=== PATIENT | male | born 1950 | race Caucasian/White ===

== ENCOUNTER 2019-07-28 05:39 | Inpatient (IN) | payer MEDICARE ==
[~2019-07-28] VITALS: Ht 170.2 cm; Wt 110.3 kg
[2019-07-28] VITALS (8 sets, daily range): BP systolic 101–170; BP diastolic 55–85
[2019-07-28] MEDS ORDERED: BUDE0.5A IH (10:20)
[2019-07-28] MEDS ORDERED: PRAZ2CAP2 PO (10:20)
[2019-07-28] MEDS ORDERED: XOPENEX0.63 MG/3 IH (10:20)
[2019-07-28] MEDS ORDERED: FLUO40CA2 PO (10:20)
[2019-07-28] MEDS ORDERED: MONT10TA49 PO (10:20)
[2019-07-28] MEDS ORDERED: ACET325T9 PO (10:20)
[2019-07-28] MEDS ORDERED: SPIR25TA5 PO (10:20)
[2019-07-28] MEDS ORDERED: GLIP10TA13 PO (10:20)
[2019-07-28] MEDS ORDERED: PRAZ5CAP2 PO (10:20)
[2019-07-28] MEDS ORDERED: AMMO57LO TP (10:20)
[2019-07-28] MEDS ORDERED: TIOT18CA IH (10:20)
[2019-07-28] MEDS ORDERED: ERGO500027 PO (10:20)
[2019-07-28] MEDS ORDERED: ASPI-630 PO (10:20)
[2019-07-28] MEDS ORDERED: RANI150T2 PO (10:20)
[2019-07-28] MEDS ORDERED: CRESTOR40 MG PO (10:20)
[2019-07-28] MEDS ORDERED: QUET400T PO (10:20)
[2019-07-28] MEDS ORDERED: FURO40TA4 PO (10:20)
[2019-07-28] MEDS ORDERED: GABA600T7 PO (10:20)
[2019-07-28] MEDS ORDERED: ALOG25TA2 PO (10:20)
[2019-07-28] MEDS ORDERED: EMPA10TA PO (10:20)
[2019-07-28] MEDS ORDERED: CYAN100031 PO (10:20)
[2019-07-28] MEDS: ASPIRIN CHEWABLE 81 MG TABLET. PO SCH (11:26)
[2019-07-28] MEDS ORDERED: ACETAMINOPHEN 325 MG TABLET. PO PRN (11:30)
[2019-07-28] MEDS ORDERED: AMMONIUM LACTATE 12% TOPICAL LOTION 226GM BOTTLE. TP PRN (11:30)
[2019-07-28] MEDS: IPRATRPIUM/ALBUTEROL 0.5/2.5MG 3 ML NEBU. NEB SCH ×3 (12:00→20:03)
[2019-07-28] MEDS: BUDESONIDE 0.5 MG/2 ML NEBU. NEB SCH ×2 (12:00→20:03)
[2019-07-28] MEDS ORDERED: AMMONIUM LACTATE 12% TOPICAL LOTION 226GM BOTTLE. TP SCH (12:00)
[2019-07-28] MEDS ORDERED: ACETAMINOPHEN 325 MG TABLET. PO SCH (12:00)
[2019-07-28] MEDS ORDERED: FUROSEMIDE 40 MG TABLET. PO PRN (12:00)
[2019-07-28] MEDS: FLUoxetine HCL 20 MG CAPSULE PO SCH (12:16)
[2019-07-28] MEDS: CYANOCOBALAMIN (VITAMIN B-12) 1,000 MCG TABLET. PO SCH (12:16)
[2019-07-28] MEDS: FAMOTIDINE 20 MG TABLET. PO SCH (12:16)
[2019-07-28] MEDS: MONTELUKAST SODIUM 10 MG TABLET. PO SCH (12:16)
[2019-07-28] MEDS: SPIRONOLACTONE 25 MG TABLET PO SCH (12:17)
--- NOTE | 2019-07-28 12:20 | HP ---
ADMIT DATE: 07/28/2019 HISTORY OF PRESENT ILLNESS: The patient is a 69-year-old male patient, who was actually discharged from [facility] on 07/26/2019. He was actually admitted there with syncopal episode and on the day of discharge, I actually discontinued his lisinopril and bisoprolol. He was also on about 60 mg of Lasix; I cut down to only 40 mg. In fact, when he came, he was extremely dehydrated and has acute kidney injury. On admission, his creatinine was 2.6; on the day of discharge, it was 1.1. He did have also COPD exacerbation and was treated with steroids and he did actually extremely well and was discharged home and apparently presented again to the Emergency Room of [facility] with another episode of syncope. He stated he was watching Murder Mystery on TV and he got up to go to the bed, got dizzy and kind of blacked out. "I fell hitting my head again in the same place." He was taken to the [facility] and they refused to take him there and from there, he was transferred to [facility] where he was evaluated. Apparently, the paramedics found his blood pressure to be low, with 70 mm systolic pressure. He did complain of head injury in the same location; has prior head injury on 07/22. Has had contusion and hematoma on the right scalp. The patient stated he had marked dizziness where he reports syncopal episode. He normally follows at the [facility] and was referred to [facility]. The patient has severe COPD, on 3 liters of oxygen. He does have a history of coronary artery disease and bypass graft before. He was evaluated in the Emergency Room. His lab work showed that his troponin was high at 0.612. White cell count was slightly elevated, but he is also on steroids. His chemistry showed his creatinine actually is 1.5, slightly higher the day he was discharged and his D-dimer was 0.94, although we did actually CT angio, which showed no evidence of pulmonary embolism. Has had CT scan of the maxillofacial and cervical spine and a CT scan of the head showed that there is no acute finding. There is no loss of vertebral body stature. There is no prevertebral soft tissue swelling. The vertebral bodies are well aligned. C1-C2 relationship is normal. The visualized osseous structures appear normal. The nasal septum is mostly midline. The ostiomeatal complexes are narrow, but patent. The paranasal sinuses are clear. The visualized osseous structures appear intact. The orbits appear normal. The mandible is not well seen due to an emotion and given the recurrence, he has a chest x-ray, which basically showed that his right basal infiltrate could be discoid atelectasis, pulmonary contusion, possible mild fluid overload, right jugular vein well positioned, no pneumothorax. Given the recurrence of syncope and elevated troponin, the patient was transferred to [facility] for further evaluation and to consult the Cardiology team. PAST MEDICAL HISTORY: Significant for coronary artery disease, status post coronary artery bypass graft surgery, he has COPD, history of stroke few years ago without significant residual, gastroesophageal reflux disease, hypertension, hyperlipidemia, hypothyroidism, chronic renal disease, and myocardial infarction. He also has type 2 diabetes mellitus with history of ischemic cardiomyopathy and congestive heart failure. He is also known to have schizophrenia, anxiety, and depression. PAST SURGICAL HISTORY: Significant for coronary artery bypass graft surgery and on his last admission, he actually fell and also broke his right medial malleolus, for which he has a walking boot. FAMILY HISTORY: Noncontributory. SOCIAL HISTORY: He is single. He smokes 3-4 cigarettes a day. He denies alcohol drinking or illicit drug use. He is a . ALLERGIES: HE IS ALLERGIC TO PENICILLIN, RABEPRAZOLE AND DIAZEPAM. REVIEW OF SYSTEMS: As per history of present illness. MEDICATIONS: He was discharged on following medications: He was discharged on Tylenol 650 mg every 4 hours, albuterol sulfate 2 puffs every 4-6 hours, alogliptin 25 mg daily, ammonium lactate apply topically twice a day, aspirin 81 mg once a day, Pulmicort 2 puffs twice a day, carboxymethylcellulose for Refresh Optive eyedrops 1 drop to both eyes 4 times a day. He was on cyanocobalamin for vitamin B12 of 1000 mcg tablet once a day, diclofenac sodium 1 gram applied topically 3 times a day, Jardiance 12.5 mg daily, ergocalciferol 50,000 International Unit once a week, fluoxetine 40 mg once a day, fluticasone propionate 2 sprays to each nostril once a day, furosemide 40 mg once a day, gabapentin 300 mg 3 times a day, glipizide 20 mg twice a day, Xopenex inhalation 4 times a day, montelukast for Singulair 10 mg at bedtime. He is on nicotine lozenges 2 mg every 2 hours as needed, nitroglycerin 0.4 mg sublingually every 5 minutes x 3, prazosin 7 mg at bedtime, quetiapine fumarate for Seroquel 400 mg at bedtime, ranitidine 150 mg twice a day, Crestor 40 mg once a day, saliva stimulant 1 mL every hour as needed, sodium chloride by saline spray 2 sprays to each nostril as needed, spironolactone 12.5 mg daily and Spiriva HandiHaler 1 inhalation once a day. In fact, on his last discharge, I discontinued his bisoprolol, furosemide, lisinopril, and meloxicam. PHYSICAL EXAMINATION: GENERAL: On arrival to the Emergency Room, he looked well and was slightly pale, but no jaundice or cyanosis. No lymphadenopathy. No thyromegaly. No jugular venous distention. No lower limb edema. VITAL SIGNS: His heart rate was 79, blood pressure was 107/74, temperature was 98.2, respiratory rate 21, and oxygen saturation was 99% on 3 liters by nasal cannula. HEAD, EYES, EARS, NOSE AND THROAT: Normocephalic with contusion and hematoma, right scalp and face. Bilateral external ears normal. Oropharynx moist. No oral exudate and the nose was normal. The external ocular movements were intact. NECK: Supple, with no lymphadenopathy or thyromegaly. No jugular venous distension. No audible bruits. HEART: Showed normal first and second heart sounds with no gallop or murmur. CHEST: Clear to auscultation. No crepitation. He has bilateral scattered wheezing. No crackles. ABDOMEN: Soft, nontender. NEUROLOGIC: He was awake, alert, oriented x 3. Moves all extremities on request. He has slight decreased plantar sensory. No new focal deficit. He has lab work done, showed that his white cell count was slightly elevated at 11,600. However, he was on a tapering course of steroids. His hemoglobin was 11, hematocrit 34, MCV 92, and platelet count of 186,000. His chemistry showed a serum sodium 141, potassium 4, chloride 101, bicarbonate 28, anion gap of 12, BUN 30, creatinine 1.5, estimated GFR was 46 mL per minute. His glucose was high at 231. Lactic acid was slightly high at 2.4. Calcium was 8.5. Magnesium 2. Total bilirubin, AST, ALT, alkaline phosphatase were normal. His first troponin was 0.612. His beta natriuretic peptide was 16,167. Total protein was 5.9, albumin was 3. Lipase was 67. TSH was slightly elevated at 5.614. His prothrombin time is 10.4, INR of 1, aPTT was normal at 24. D-dimer slightly elevated at 0.94. Therefore, the patient was transferred to [facility] with syncopal episode and elevated troponin. This is the second time he was admitted for similar presentation. Last time he was extremely dehydrated, his creatinine was 2.4. I did discontinue his lisinopril and bisoprolol last time and did actually CT angio of the chest, showed no evidence of pulmonary emboli. PLAN: To continue, resume all his medication and consult the Cardiology team. Check his orthostatics. ZINA DONIS MD DR: JOSEFINA/harmony JOB#: [id number] / [id number]
[2019-07-28] MEDS ORDERED: LEVALBUTEROL HCL 0.31 MG IH SCH (13:00)
[2019-07-28] MEDS: GABAPENTIN 300 MG CAPSULE. PO SCH ×2 (13:35→21:14)
--- NOTE | 2019-07-28 14:41 | CONS ---
DATE OF CONSULTATION: PULMONARY CONSULTATION HISTORY OF PRESENT ILLNESS: The patient is a 69-year-old male that we are asked to consult on for respiratory failure. The patient denies any childhood respiratory problems. He has been smoking tobacco since the age of 12. Over most of the years that he smoked, he typically consumed approximately 1 pack of cigarettes per day. Presently, he is consuming 3-4 cigarettes per day. He has been diagnosed as having COPD for many years, per his history. He has been on chronic oxygen therapy for the past 3-4 years. He is on 3 L chronically. He believes that his last hospitalization for pulmonary problems was approximately 3 years ago. At baseline, he can walk approximately 100 yards before having to stop due to shortness of breath. He states that chronically he was on Symbicort and p.r.n. levalbuterol. Per the notes of a recent discharge, he was on Pulmicort and albuterol. The patient was recently hospitalized at [facility] for syncope. Please refer to the history and physical of this episode for a synopsis of that hospitalization. At that hospitalization, Dr. Coleman noted that he was treated for an acute exacerbation of his COPD with bronchodilators and steroids. I do not have access to that record, although I do suspect that he was also treated with antibiotics. At that hospitalization, he had a CT exam that showed severe emphysema. He also had a right upper lobe 8 mm lung nodule. He had a left upper lobe infiltrate. He was primarily hospitalized for syncope. He was discharged on 07/26. He subsequently had further syncope and hypotension. He was once again admitted to [facility] and transferred to [facility] primarily for cardiac evaluation. The patient notes that his breathing has been worse for the past month or so. He denies any change in his respiratory status over the past week. He notes that he does have a cough that is occasionally productive of green sputum, but it usually is nonproductive. His cough has not changed. He denies having any fever. PAST MEDICAL HISTORY: Significant for coronary artery disease, status post coronary artery bypass graft surgery. He also had a CVA in the past. He has diabetes and hypertension. He has chronic renal disease. In the past, he has been diagnosed with hypothyroidism. FAMILY HISTORY: He notes that his grandfather of COPD. There is no other family history of lung disease. SOCIAL HISTORY: See above tobacco smoke exposure. He is unemployed, but previously worked as a ball. REVIEW OF SYSTEMS: A 12-point review of systems was obtained. Other than what is noted above, his 12-point review of systems was negative. PHYSICAL EXAMINATION: GENERAL: Reveals a male in no acute distress. VITAL SIGNS: He is afebrile. He is on oxygen at 3 liters by nasal cannula with an oxygen saturation of 97%. His blood pressure presently is 122/85, his heart rate is 91 per minute and regular. His respiratory rate is 20 per minute with pursed lip breathing and a prolonged exhalation phase, but without accessory muscle use. HEENT: Unremarkable. NECK: There is no JVD or lymphadenopathy. CHEST: He has distant breath sounds with occasional scattered wheezing. There are no rales, rhonchi, wheezes or rubs. CARDIOVASCULAR: He has a regular rate and rhythm. The sounds are somewhat distant. I do not appreciate any murmurs or gallops. ABDOMEN: Soft. EXTREMITIES: There is no cyanosis, clubbing or edema. NEUROLOGIC: He is alert, oriented and appropriate. Cranial nerves, motor, and coordination are all intact. LABORATORY DATA: His initial laboratory on this admission at [facility] was significant for white blood cell count of 11,600. His lactic acid was 2.4. His troponin was 0.612. His BNP was 16,000. His creatinine was 2.4. These labs were drawn on admission with his hypotension. I reviewed his chest x-ray that was done at [facility]. There are no acute infiltrates. I also reviewed the CTA that was done at [facility] on 07/25 and the results are as described above including left upper lobe infiltrate, severe emphysema, and a lung nodule. IMPRESSION: 1. Acute on chronic respiratory failure. 2. Chronic obstructive pulmonary disease with acute exacerbation. 3. Left upper lobe pneumonia. 4. Hypotension and syncope. 5. Coronary artery disease. 6. Right upper lobe lung nodule. 7. Tobacco abuse. PLAN: I reviewed all of the above with the patient. I noted to him the extreme importance that he have complete tobacco cessation. I agree with his therapy of bronchodilators, steroids, and low flow oxygen. If he has not received a complete course for pneumonia, I would treat him with appropriate antibiotics for that. His history, however, is very compatible with adequately treated pneumonia. His right upper lobe nodule will require radiographic followup in the future. Thank you for consulting our service. We will follow along with you. If you have any questions, please do not hesitate to contact me. KAMILLE CRUZ MD DR: DONIS/harmony JOB#: [id number] / [id number] GLORIA
[2019-07-28] MEDS: glipiZIDE 5 MG TABLET PO SCH (16:30)
[2019-07-28] MEDS ORDERED: PRAZOSIN HCL 5 MG PO SCH (21:00)
[2019-07-28] MEDS ORDERED: PRAZOSIN 1 MG CAPSULE. PO SCH (21:00)
[2019-07-28] MEDS: QUEtiapine 100 MG TABLET. PO SCH (21:14)
[2019-07-28] MEDS: ATORVASTATIN CALCIUM 40 MG TABLET. PO SCH (21:16)
--- NOTE | 2019-07-28 23:45 | PDOC ---
CARDIOLOGY PROGRESS NOTE SUBJECTIVE: Please see full consult note from [facility] for full details. Patient transferred here for pulmonary eval and recurrent syncope. Today he overall feels ok. Still has dyspnea OBJECTIVE: Vital Signs/I&O: Vital Signs Date Time Temp Pulse Resp B/P (MAP) Pulse Ox O2 Delivery O2 Flow Rate FiO2 07/28/19 21:14 79 170/72 07/28/19 20:04 94 Nasal Cannula 3.0 07/28/19 19:40 97.8 22 97.8 Objective: Bilateral wheezing/rhonchi Normal heart tones No edema soft abd CURRENT MEDICATIONS: Current Medications Medications (Trade) Dose Ordered Sig/Korin Route PRN Reason Start Time Stop Time Status Last Admin Dose Admin Budesonide (Pulmicort) 0.5 mg RTBID NEB 07/28/19 12:00 07/28/19 20:03 Montelukast Sodium (Singulair) 10 mg DAILY PO 07/28/19 12:00 07/28/19 12:16 Spironolactone (Aldactone) 12.5 mg DAILY PO 07/28/19 12:00 07/28/19 12:17 Cyanocobalamin (Vitamin B-12) 1,000 mcg DAILY PO 07/28/19 12:00 07/28/19 12:16 Fluoxetine HCl (PROzac) 40 mg DAILY PO 07/28/19 12:00 07/28/19 12:16 Gabapentin (Neurontin) 300 mg TID PO 07/28/19 14:00 07/28/19 21:14 Glipizide (Glucotrol) 20 mg BIDBFRMEAL PO 07/28/19 16:30 07/28/19 16:30 Prazosin HCl (Minipress) 7 mg QHS PO 07/28/19 21:00 07/28/19 21:14 Quetiapine Fumarate (SEROquel) 400 mg QHS PO 07/28/19 21:00 07/28/19 21:14 Famotidine (Pepcid) 20 mg DAILY PO 07/28/19 12:00 07/28/19 12:16 Atorvastatin Calcium (Lipitor) 80 mg QHS PO 07/28/19 21:00 07/28/19 21:16 Albuterol/ Ipratropium (Duoneb) 3 ml RTQID NEB 07/28/19 12:00 07/28/19 20:03 DIAGNOSTIC TESTING: Tele/EKG/prior [facility] reports reviewed ASSESSMENT: 1. Ischemic CMP 2. Labile BP likely due to autonomic dysfunction 3. ELevated troponin, likely type 2 PLAN: 1. Continue aggressive pulmonary therapy 2. From a purely cardiac perspective, his syncope is not related to any clear rhythm or structural heart abnormalities. Given his cardiomyopathy, cannot rule out arrhythmias. Will consider outpt loop recorder or event monitoring. supportive care. repeat orthostatics in a.m. may need to stop his prazosin. Will follow along. Complex case ANT JENKINS MD Jul 28, 2019 23:45
[2019-07-29 03:40] VITALS: BP 145/74
[2019-07-29 07:00] VITALS: BP 123/69
[2019-07-29] MEDS: BUDESONIDE 0.5 MG/2 ML NEBU. NEB SCH ×2 (07:56→19:37)
[2019-07-29] MEDS: IPRATRPIUM/ALBUTEROL 0.5/2.5MG 3 ML NEBU. NEB SCH ×4 (07:56→19:37)
[2019-07-29] MEDS: FLUoxetine HCL 20 MG CAPSULE PO SCH (08:15)
[2019-07-29] MEDS: glipiZIDE 5 MG TABLET PO SCH ×2 (08:15→15:11)
[2019-07-29] MEDS: FAMOTIDINE 20 MG TABLET. PO SCH (08:15)
[2019-07-29] MEDS: CYANOCOBALAMIN (VITAMIN B-12) 1,000 MCG TABLET. PO SCH (08:15)
[2019-07-29] MEDS: MONTELUKAST SODIUM 10 MG TABLET. PO SCH (08:15)
[2019-07-29] MEDS: ASPIRIN CHEWABLE 81 MG TABLET. PO SCH (08:15)
[2019-07-29 08:16] LABS: BASO % 0 % (0-3); EOS # 0.5 x10^3/uL (0.0-0.7); EOS % 7 % (0-3); HEMATOCRIT 32.6 % (39.0-53.0); HEMOGLOBIN 10.7 g/dL (13.0-17.5); LYMPH # 1.8 x10^3/uL (1.0-4.8); LYMPH % 22 % (24-48); MEAN CORPUSCULAR HEMOGLOBIN 30 pg (25-35); MEAN CORPUSCULAR HGB CONC 33 g/dL (31-37); MEAN CORPUSCULAR VOLUME 92 fL (79-100); MONO # 0.8 x10^3/uL (0.0-1.1); MONO % 11 % (0-9); NEUT # 4.7 x10^3/uL (1.8-7.7); NEUT % 60 % (31-73); PLATELET COUNT 176 x10^3/uL (140-400); RED BLOOD COUNT 3.56 x10^6/uL (4.30-5.70); RED CELL DISTRIBUTION WIDTH 14.7 % (11.5-14.5); WHITE BLOOD COUNT 7.8 x10^3/uL (4.0-11.0)
[2019-07-29] MEDS: GABAPENTIN 300 MG CAPSULE. PO SCH ×3 (08:16→21:56)
[2019-07-29] MEDS: SPIRONOLACTONE 25 MG TABLET PO SCH (08:16)
[2019-07-29] MEDS: EMPAGLIFLOZIN 12.5 MG PO SCH (08:18)
[2019-07-29 08:38] LABS: CALCIUM 8.5 mg/dL (8.5-10.1); CREATININE 0.9 mg/dL (0.7-1.3); GFR 83.9; POTASSIUM 4.5 mmol/L (3.5-5.1)
[2019-07-29] MEDS ORDERED: ALOGLIPTIN BENZOATE 25 MG PO SCH (09:00)
--- NOTE | 2019-07-29 10:24 | PDOC ---
PULMONARY PROGRESS NOTES Subjective He has been smoking tobacco since the age of 12. Over most of the years that he smoked, he typically consumed approximately 1 pack of cigarettes per day. Presently, he is consuming 3-4 cigarettes per day. He has been diagnosed as having COPD for many years, per his history. He has been on chronic oxygen therapy for the past 3-4 years. He is on 3 L chronically. He believes that his last hospitalization for pulmonary problems was approximately 3 years ago. At baseline, he can walk approximately 100 yards before having to stop due to shortness of breath. He states that chronically he was on Symbicort and p.r.n. levalbuterol. Per the notes of a recent discharge, he was on Pulmicort and albuterol. The patient was recently hospitalized at [facility] for syncope. Please refer to the history and physical of this episode for a synopsis of that hospitalization. At that hospitalization, Dr. Coleman noted that he was treated for an acute exacerbation of his COPD with bronchodilators and steroids. I do not have access to that record, although I do suspect that he was also treated with antibiotics. At that hospitalization, he had a CT exam that showed severe emphysema. He also had a right upper lobe 8 mm lung nodule. He had a left upper lobe infiltrate. He was primarily hospitalized for syncope. He was discharged on 07/26. He subsequently had further syncope and hypotension. He was once again admitted to [facility] and transferred to [facility] primarily for cardiac evaluation. The patient noted that his breathing had been worse for the past month or so. He denies any change in his respiratory status over the past week. He notes that he does have a cough that is occasionally productive of green sputum, but it usually is nonproductive. Overnight he has done well and notes his breathing is better and he has been up and out of bed more. Vitals Vital Signs Date Time Temp Pulse Resp B/P (MAP) Pulse Ox O2 Delivery O2 Flow Rate FiO2 07/29/19 08:00 Nasal Cannula 3.0 07/29/19 07:57 98 07/29/19 07:00 97.8 87 22 123/69 (87) 97.8 ROS: No Nausea, No Chest Pain, No Abdominal Pain General: Alert, Oriented X4, No acute distress Lungs: Other (equally diminished breath sounds with a few scattered wheezes) Cardiovascular: S1, S2 Abdomen: Soft, Non-tender Neuro Exam: Alert, Oriented, No Focal Findings Extremities: No Edema Skin: Warm Labs Laboratory Tests Test 07/28/19 11:31 07/29/19 07:55 Troponin I Quantitative 0.308 ng/mL (0.000-0.055) White Blood Count 7.8 x10^3/uL (4.0-11.0) Red Blood Count 3.56 x10^6/uL (4.30-5.70) Hemoglobin 10.7 g/dL (13.0-17.5) Hematocrit 32.6 % (39.0-53.0) Mean Corpuscular Volume 92 fL (79-100) Mean Corpuscular Hemoglobin 30 pg (25-35) Mean Corpuscular Hemoglobin Concent 33 g/dL (31-37) Red Cell Distribution Width 14.7 % (11.5-14.5) Platelet Count 176 x10^3/uL (140-400) Neutrophils (%) (Auto) 60 % (31-73) Lymphocytes (%) (Auto) 22 % (24-48) Monocytes (%) (Auto) 11 % (0-9) Eosinophils (%) (Auto) 7 % (0-3) Basophils (%) (Auto) 0 % (0-3) Neutrophils # (Auto) 4.7 x10^3/uL (1.8-7.7) Lymphocytes # (Auto) 1.8 x10^3/uL (1.0-4.8) Monocytes # (Auto) 0.8 x10^3/uL (0.0-1.1) Eosinophils # (Auto) 0.5 x10^3/uL (0.0-0.7) Basophils # (Auto) 0.0 x10^3/uL (0.0-0.2) Sodium Level 141 mmol/L (136-145) Potassium Level 4.5 mmol/L (3.5-5.1) Chloride Level 105 mmol/L (98-107) Carbon Dioxide Level 33 mmol/L (21-32) Anion Gap 3 (6-14) Blood Urea Nitrogen 22 mg/dL (8-26) Creatinine 0.9 mg/dL (0.7-1.3) Estimated GFR (Cockcroft-Gault) 83.9 Glucose Level 146 mg/dL (70-99) Calcium Level 8.5 mg/dL (8.5-10.1) Laboratory Tests Test 07/28/19 11:31 07/29/19 07:55 Troponin I Quantitative 0.308 ng/mL (0.000-0.055) White Blood Count 7.8 x10^3/uL (4.0-11.0) Red Blood Count 3.56 x10^6/uL (4.30-5.70) Hemoglobin 10.7 g/dL (13.0-17.5) Hematocrit 32.6 % (39.0-53.0) Mean Corpuscular Volume 92 fL (79-100) Mean Corpuscular Hemoglobin 30 pg (25-35) Mean Corpuscular Hemoglobin Concent 33 g/dL (31-37) Red Cell Distribution Width 14.7 % (11.5-14.5) Platelet Count 176 x10^3/uL (140-400) Neutrophils (%) (Auto) 60 % (31-73) Lymphocytes (%) (Auto) 22 % (24-48) Monocytes (%) (Auto) 11 % (0-9) Eosinophils (%) (Auto) 7 % (0-3) Basophils (%) (Auto) 0 % (0-3) Neutrophils # (Auto) 4.7 x10^3/uL (1.8-7.7) Lymphocytes # (Auto) 1.8 x10^3/uL (1.0-4.8) Monocytes # (Auto) 0.8 x10^3/uL (0.0-1.1) Eosinophils # (Auto) 0.5 x10^3/uL (0.0-0.7) Basophils # (Auto) 0.0 x10^3/uL (0.0-0.2) Sodium Level 141 mmol/L (136-145) Potassium Level 4.5 mmol/L (3.5-5.1) Chloride Level 105 mmol/L (98-107) Carbon Dioxide Level 33 mmol/L (21-32) Anion Gap 3 (6-14) Blood Urea Nitrogen 22 mg/dL (8-26) Creatinine 0.9 mg/dL (0.7-1.3) Estimated GFR (Cockcroft-Gault) 83.9 Glucose Level 146 mg/dL (70-99) Calcium Level 8.5 mg/dL (8.5-10.1) Medications Active Scripts Medications Dose Route/Sig Max Daily Dose Days Date Category Spironolactone 25 Mg Tablet 12.5 Mg PO DAILY 07/28/19 Reported Crestor (Rosuvastatin Calcium) 40 Mg Tablet 40 Mg PO HS 07/28/19 Reported Ranitidine Hcl 150 Mg Tablet 150 Mg PO DAILY 07/28/19 Reported Xopenex (Levalbuterol Hcl) 0.63 Mg/3 Ml Vial.neb 0.31 Mg IH QID 07/28/19 Reported Jardiance (Empagliflozin) 10 Mg Tablet 12.5 Mg PO DAILY 07/28/19 Reported B-12 (Cyanocobalamin (Vitamin B-12)) 1,000 Mcg Tablet.er 1,000 Mcg PO DAILY 07/28/19 Reported Spiriva (Tiotropium [place]) 18 Mcg Cap.w.dev 2 Inh IH DAILY 07/28/19 Reported Quetiapine Fumarate 400 Mg Tablet 400 Mg PO HS 07/28/19 Reported Prazosin Hcl 5 Mg Capsule 5 Mg PO HS 07/28/19 Reported Montelukast Sodium Tablet (Montelukast Sodium) 10 Mg Tablet 10 Mg PO DAILY 07/28/19 Reported Glipizide 10 Mg Tablet 20 Mg PO BID 07/28/19 Reported Gabapentin 600 Mg Tablet 300 Mg PO TID 07/28/19 Reported Furosemide 40 Mg Tablet 40 Mg PO DAILY PRN 07/28/19 Reported Fluoxetine Hcl 40 Mg Capsule 40 Mg PO DAILY 07/28/19 Reported Vitamin D2 (Ergocalciferol (Vitamin D2)) 50,000 Unit Capsule 50,000 Unit PO WEEKLY 07/28/19 Reported Budesonide 0.5 Mg/2 Ml Ampul.neb 180 Mcg IH BID 07/28/19 Reported Aspirin 81 Mg Tab.chew 81 Mg PO DAILY 07/28/19 Reported Amlactin (Ammonium Lactate) 57 Gm Lotion 57 Gm TP BID 07/28/19 Reported Alogliptin (Alogliptin Benzoate) 25 Mg Tablet 25 Mg PO DAILY 07/28/19 Reported Tylenol (Acetaminophen) 325 Mg Tablet 325 Mg PO Q4HRS 07/28/19 Reported Impression . 1. Resolving Acute on chronic respiratory failure. 2. Chronic obstructive pulmonary disease with acute exacerbation. 3. Left upper lobe pneumonia. 4. Hypotension and syncope. 5. Coronary artery disease. 6. Right upper lobe lung nodule. 7. Tobacco abuse. PLAN: I reviewed all of the above with the patient. I noted to him again the extreme importance that he have complete tobacco cessation after discharge. I agree with his therapy of bronchodilators, steroids, and low flow oxygen. If he has not received a complete course for pneumonia, I would treat him with appropriate antibiotics for that. His history, however, is very compatible with adequately treated pneumonia. His right upper lobe nodule will require radiographic followup in the future. KAMILLE CRUZ MD Jul 29, 2019 10:24
[2019-07-29 11:21] VITALS: BP 150/73
[2019-07-29] MEDS ORDERED: IPRATRPIUM/ALBUTEROL 0.5/2.5MG 3 ML NEBU. NEB SCH (12:00)
--- NOTE | 2019-07-29 12:24 | PDOC ---
CARDIOLOGY PROGRESS NOTE SUBJECTIVE: No acute events overnight. He does not have any significant problems with ambulation He tells me this morning that when he went home even though he was advised not to take his antihypertensives he ended up taking the same pills from his pillbox and likely suffered from the syncope due to hypotension. Case discussed with nursing and primary care physician OBJECTIVE: Vital Signs/I&O: Vital Signs Date Time Temp Pulse Resp B/P (MAP) Pulse Ox O2 Delivery O2 Flow Rate FiO2 07/29/19 11:40 98 Nasal Cannula 3.0 07/29/19 11:21 97.4 81 20 150/73 (98) 97.4 I & O 07/28/19 07/28/19 07/29/19 14:59 22:59 06:59 Intake Total 240 ml 320 ml Output Total 425 ml 1125 ml 350 ml Balance -185 ml -1125 ml -30 ml Objective: He is alert and oriented in no acute distress Right leg is in a cast He has normal heart tones. Lungs are notable for bilateral wheezing No significant lower ext edema. CURRENT MEDICATIONS: Current Medications Medications (Trade) Dose Ordered Sig/Korin Route PRN Reason Start Time Stop Time Status Last Admin Dose Admin Gabapentin (Neurontin) 300 mg TID PO 07/28/19 14:00 07/29/19 08:16 Glipizide (Glucotrol) 20 mg BIDBFRMEAL PO 07/28/19 16:30 07/29/19 08:15 Prazosin HCl (Minipress) 7 mg QHS PO 07/28/19 21:00 07/29/19 09:20 DC 07/28/19 21:14 Quetiapine Fumarate (SEROquel) 400 mg QHS PO 07/28/19 21:00 07/28/19 21:14 Atorvastatin Calcium (Lipitor) 80 mg QHS PO 07/28/19 21:00 07/28/19 21:16 DIAGNOSTIC TESTING: Labs: Laboratory Tests 07/29/19 07:55 Laboratory Tests Test 07/29/19 07:55 White Blood Count 7.8 x10^3/uL (4.0-11.0) Red Blood Count 3.56 x10^6/uL (4.30-5.70) L Hemoglobin 10.7 g/dL (13.0-17.5) L Hematocrit 32.6 % (39.0-53.0) L Mean Corpuscular Volume 92 fL (79-100) Mean Corpuscular Hemoglobin 30 pg (25-35) Mean Corpuscular Hemoglobin Concent 33 g/dL (31-37) Red Cell Distribution Width 14.7 % (11.5-14.5) H Platelet Count 176 x10^3/uL (140-400) Neutrophils (%) (Auto) 60 % (31-73) Lymphocytes (%) (Auto) 22 % (24-48) L Monocytes (%) (Auto) 11 % (0-9) H Eosinophils (%) (Auto) 7 % (0-3) H Basophils (%) (Auto) 0 % (0-3) Neutrophils # (Auto) 4.7 x10^3/uL (1.8-7.7) Lymphocytes # (Auto) 1.8 x10^3/uL (1.0-4.8) Monocytes # (Auto) 0.8 x10^3/uL (0.0-1.1) Eosinophils # (Auto) 0.5 x10^3/uL (0.0-0.7) Basophils # (Auto) 0.0 x10^3/uL (0.0-0.2) Sodium Level 141 mmol/L (136-145) Potassium Level 4.5 mmol/L (3.5-5.1) Chloride Level 105 mmol/L (98-107) Carbon Dioxide Level 33 mmol/L (21-32) H Anion Gap 3 (6-14) L Blood Urea Nitrogen 22 mg/dL (8-26) Creatinine 0.9 mg/dL (0.7-1.3) Estimated GFR (Cockcroft-Gault) 83.9 Glucose Level 146 mg/dL (70-99) H Calcium Level 8.5 mg/dL (8.5-10.1) ASSESSMENT: 1. Syncope likely due to hypotension from overmedication 2. Ischemic cardio myopathy status post recent heart catheterization through the [facility] 3. Hypertension labile 4. COPD PLAN: 1. He's stable from a cardiac perspective. Discussed with Dr. Babb. Okay for discharge tomorrow. I advised the patient again to change his pills from his pill bottle and update his medication list. ANT JENKINS MD Jul 29, 2019 12:24
[2019-07-29 12:43] LABS: % BANDS 1 % (0-9); % EOS 9 % (0-5); % LYMPHS 25 % (24-48); % MONOS 8 % (0-10); % MYELOS 5 % (0-0); % SEGS 52 % (35-66)
[2019-07-29 12:44] LABS: ANISOCYTOSIS SLIGHT; PLT ESTIMATE ADEQUATE (ADEQUATE)
--- NOTE | 2019-07-29 13:08 | PN ---
DATE: 07/29/2019 SUBJECTIVE: The patient is resting slightly propped up in bed, no apparent distress. On questioning him, he denied any complaint; in particular, has had no further episode of syncope and his chest tightness and wheezing have much improved; denied any shortness of breath and had generally uneventful night. OBJECTIVE: GENERAL: When I examined him this morning, he looked somewhat pale, but no jaundice, cyanosis, or thyromegaly. No jugular venous distension. No lower limb edema. VITAL SIGNS: His heart rate was 87, blood pressure was 123/69, temperature was 97.8, respiratory rate 22, and oxygen saturation was 98% on 3 liters of oxygen. His intake was 560, output was 1900. HEENT: Showed normocephalic, atraumatic. NECK: Supple. HEART: Showed normal first and second heart sounds with no gallop, rub, or murmur. CHEST: Clear to auscultation. No crepitation or rhonchi anteriorly. He has a few scattered rhonchi and crepitation mostly on the right side. ABDOMEN: Distended, soft, nontender. NEUROLOGIC: He was awake, alert, responding appropriately. All cranial nerves are intact. He moves extremities without difficulty. He normally ambulates without assistance or assistive devices. LABORATORY DATA: As of this morning, his white cell count was 7800, hemoglobin 11, hematocrit 33, MCV 92, and platelet count of 176,000. Serum sodium was 141, potassium 4.5, chloride 105, bicarbonate 33, anion gap of 3, BUN 22, creatinine 0.9, estimated GFR was 84 mL per minute, his glucose 146, calcium was 8.5, and his troponin was 0.308. ASSESSMENT: 1. Recurrent syncopal episode. I did discontinue his Bystolic as well as his lisinopril; however, he is on high dose of prazosin 7 mg, which is within the recommended dose for posttraumatic stress disorder. 2. Acute on chronic respiratory failure. 3. Chronic obstructive pulmonary disease, acute exacerbation. 4. Left upper lobe pneumonia. 5. Coronary artery disease. 6. Right upper lobe lung nodule. 7. Tobacco abuse. PLAN: Continue with nebulized albuterol and Atrovent. We will consult the Physical and Occupational Therapy, we will check his orthostatics, and I will cut down his prazosin to 5 mg and perhaps discharge him home tomorrow. ZINA DONIS MD DR: JOSEFINA/harmony JOB#: [id number] / [id number]
[2019-07-29 15:00] VITALS: BP 125/73
[2019-07-29 19:00] VITALS: BP 119/74
[2019-07-29] MEDS ORDERED: PRAZOSIN 1 MG CAPSULE. PO SCH (21:00)
[2019-07-29] MEDS: QUEtiapine 100 MG TABLET. PO SCH (21:54)
[2019-07-29] MEDS: ATORVASTATIN CALCIUM 40 MG TABLET. PO SCH (21:55)
[2019-07-29 23:00] VITALS: BP 104/57
[2019-07-30 03:00] VITALS: BP 101/62
[2019-07-30] MEDS: BUDESONIDE 0.5 MG/2 ML NEBU. NEB SCH (06:12)
[2019-07-30] MEDS: IPRATRPIUM/ALBUTEROL 0.5/2.5MG 3 ML NEBU. NEB SCH ×3 (06:12→15:10)
[2019-07-30 07:00] VITALS: BP 121/64
[2019-07-30 07:39] LABS: BASO % 1 % (0-3); EOS # 0.5 x10^3/uL (0.0-0.7); EOS % 7 % (0-3); HEMOGLOBIN 11.4 g/dL (13.0-17.5); LYMPH % 25 % (24-48); MEAN CORPUSCULAR HEMOGLOBIN 30 pg (25-35); MEAN CORPUSCULAR HGB CONC 33 g/dL (31-37); MEAN CORPUSCULAR VOLUME 91 fL (79-100); MONO # 0.9 x10^3/uL (0.0-1.1); MONO % 12 % (0-9); NEUT # 4.5 x10^3/uL (1.8-7.7); NEUT % 57 % (31-73); PLATELET COUNT 185 x10^3/uL (140-400); RED BLOOD COUNT 3.75 x10^6/uL (4.30-5.70); RED CELL DISTRIBUTION WIDTH 14.5 % (11.5-14.5)
[2019-07-30 07:57] LABS: CALCIUM 8.9 mg/dL (8.5-10.1); CREATININE 0.9 mg/dL (0.7-1.3); GFR 83.9; POTASSIUM 4.4 mmol/L (3.5-5.1)
[2019-07-30] MEDS: SPIRONOLACTONE 25 MG TABLET PO SCH (08:05)
[2019-07-30] MEDS: MONTELUKAST SODIUM 10 MG TABLET. PO SCH (08:05)
[2019-07-30] MEDS: CYANOCOBALAMIN (VITAMIN B-12) 1,000 MCG TABLET. PO SCH (08:05)
[2019-07-30] MEDS: ASPIRIN CHEWABLE 81 MG TABLET. PO SCH (08:06)
[2019-07-30] MEDS: EMPAGLIFLOZIN 12.5 MG PO SCH (08:06)
[2019-07-30] MEDS: GABAPENTIN 300 MG CAPSULE. PO SCH ×2 (08:06→14:00)
[2019-07-30] MEDS: FLUoxetine HCL 20 MG CAPSULE PO SCH (08:06)
[2019-07-30] MEDS: glipiZIDE 5 MG TABLET PO SCH ×2 (08:06→15:42)
[2019-07-30] MEDS: FAMOTIDINE 20 MG TABLET. PO SCH (08:06)
--- NOTE | 2019-07-30 08:34 | PN ---
DATE: 07/30/2019 SUBJECTIVE: The patient is sitting at the edge of the bed comfortably, in no apparent distress. On questioning him, he denied any complaint. The nursing staff did not voice any concerns that he had an uneventful night, but that he has no further presyncopal episode while here. He was evaluated by the physical therapist and they recommended half-way facility and apparently he is a and would like to go to the [facility], the [facility] if a place becomes available. PHYSICAL EXAMINATION: GENERAL: When I examined him this morning, he looked pale, but no jaundice, cyanosis or thyromegaly. No jugular venous distention. No lower limb edema. VITAL SIGNS: Her heart rate was 93, blood pressure was 101/62, temperature was 97.5, respiratory rate was 20, and oxygen saturation was 95% on 3 liters of oxygen. HEAD, EYES, EARS, NOSE AND THROAT: Showed normocephalic, atraumatic. NECK: Supple. HEART: Showed normal first and second heart sounds. No gallop or murmur. CHEST: Clear to auscultation. No crepitation or rhonchi. ABDOMEN: Distended, soft, nontender. NEUROLOGIC: He was awake, alert, responding appropriately. All cranial nerves are intact. He moves extremities without difficulty, ambulates with a walker. His intake was 560, output was 1900. LABORATORY WORK: Showed his white cell count this morning was 8000, hemoglobin 11, hematocrit 34, MCV 91, and platelet count of 185,000. His chemistry showed a serum sodium 138, potassium 4.4, chloride 104, bicarbonate 30, anion gap of 4, BUN 17, creatinine 0.9, estimated GFR was 84 mL per minute, his glucose 178 and calcium was 8.9. ASSESSMENT: 1. Recurrent syncopal episode. I did discontinue his Bystolic as well as his lisinopril; however, he is on high dose of prazosin, which I cut down to 5 mg. 2. Acute on chronic respiratory failure. 3. Chronic obstructive pulmonary disease with acute exacerbation. 4. Left upper lobe pneumonia. 5. Coronary artery disease. 6. Right upper lobe lung nodules. 7. Continued tobacco abuse. PLAN: To continue with current plan of management. Continue with physical and occupational therapy. I did explain to the patient that he should make sure that he should stop taking lisinopril, Bystolic and cut down his prazosin to 5 mg. We will consult our vp digital marketing social media and crm to see if he can be placed at [facility] at the [facility] to continue the process of rehabilitation there. ZINA DONIS MD DR: JOSEFINA/harmony JOB#: [id number] / [id number]
--- NOTE | 2019-07-30 08:39 | PDOC ---
PULMONARY PROGRESS NOTES Subjective PT STILL SOA AT TIMES Vitals Vital Signs Date Time Temp Pulse Resp B/P (MAP) Pulse Ox O2 Delivery O2 Flow Rate FiO2 07/30/19 07:00 97.4 87 20 121/64 (83) 94 Nasal Cannula 3.0 97.4 ROS: No Nausea, No Chest Pain, No Abdominal Pain General: Alert, Oriented X4, No acute distress Lungs: Other (equally diminished breath sounds with a few scattered wheezes) Cardiovascular: S1, S2 Abdomen: Soft, Non-tender Neuro Exam: Alert, Oriented, No Focal Findings Extremities: No Edema Skin: Warm Labs Laboratory Tests Test 07/28/19 11:31 07/29/19 07:55 07/30/19 07:30 Troponin I Quantitative 0.308 ng/mL (0.000-0.055) White Blood Count 7.8 x10^3/uL (4.0-11.0) 8.0 x10^3/uL (4.0-11.0) Red Blood Count 3.56 x10^6/uL (4.30-5.70) 3.75 x10^6/uL (4.30-5.70) Hemoglobin 10.7 g/dL (13.0-17.5) 11.4 g/dL (13.0-17.5) Hematocrit 32.6 % (39.0-53.0) 34.0 % (39.0-53.0) Mean Corpuscular Volume 92 fL (79-100) 91 fL (79-100) Mean Corpuscular Hemoglobin 30 pg (25-35) 30 pg (25-35) Mean Corpuscular Hemoglobin Concent 33 g/dL (31-37) 33 g/dL (31-37) Red Cell Distribution Width 14.7 % (11.5-14.5) 14.5 % (11.5-14.5) Platelet Count 176 x10^3/uL (140-400) 185 x10^3/uL (140-400) Neutrophils (%) (Auto) 60 % (31-73) 57 % (31-73) Lymphocytes (%) (Auto) 22 % (24-48) 25 % (24-48) Monocytes (%) (Auto) 11 % (0-9) 12 % (0-9) Eosinophils (%) (Auto) 7 % (0-3) 7 % (0-3) Basophils (%) (Auto) 0 % (0-3) 1 % (0-3) Neutrophils # (Auto) 4.7 x10^3/uL (1.8-7.7) 4.5 x10^3/uL (1.8-7.7) Lymphocytes # (Auto) 1.8 x10^3/uL (1.0-4.8) 2.0 x10^3/uL (1.0-4.8) Monocytes # (Auto) 0.8 x10^3/uL (0.0-1.1) 0.9 x10^3/uL (0.0-1.1) Eosinophils # (Auto) 0.5 x10^3/uL (0.0-0.7) 0.5 x10^3/uL (0.0-0.7) Basophils # (Auto) 0.0 x10^3/uL (0.0-0.2) 0.0 x10^3/uL (0.0-0.2) Segmented Neutrophils % 52 % (35-66) Band Neutrophils % 1 % (0-9) Lymphocytes % 25 % (24-48) Monocytes % 8 % (0-10) Eosinophils % 9 % (0-5) Myelocytes % 5 % (0-0) Platelet Estimate Adequate (ADEQUATE) Large Platelets Occ Anisocytosis Slight Sodium Level 141 mmol/L (136-145) 138 mmol/L (136-145) Potassium Level 4.5 mmol/L (3.5-5.1) 4.4 mmol/L (3.5-5.1) Chloride Level 105 mmol/L (98-107) 104 mmol/L (98-107) Carbon Dioxide Level 33 mmol/L (21-32) 30 mmol/L (21-32) Anion Gap 3 (6-14) 4 (6-14) Blood Urea Nitrogen 22 mg/dL (8-26) 17 mg/dL (8-26) Creatinine 0.9 mg/dL (0.7-1.3) 0.9 mg/dL (0.7-1.3) Estimated GFR (Cockcroft-Gault) 83.9 83.9 Glucose Level 146 mg/dL (70-99) 178 mg/dL (70-99) Calcium Level 8.5 mg/dL (8.5-10.1) 8.9 mg/dL (8.5-10.1) Laboratory Tests Test 07/30/19 07:30 White Blood Count 8.0 x10^3/uL (4.0-11.0) Red Blood Count 3.75 x10^6/uL (4.30-5.70) Hemoglobin 11.4 g/dL (13.0-17.5) Hematocrit 34.0 % (39.0-53.0) Mean Corpuscular Volume 91 fL (79-100) Mean Corpuscular Hemoglobin 30 pg (25-35) Mean Corpuscular Hemoglobin Concent 33 g/dL (31-37) Red Cell Distribution Width 14.5 % (11.5-14.5) Platelet Count 185 x10^3/uL (140-400) Neutrophils (%) (Auto) 57 % (31-73) Lymphocytes (%) (Auto) 25 % (24-48) Monocytes (%) (Auto) 12 % (0-9) Eosinophils (%) (Auto) 7 % (0-3) Basophils (%) (Auto) 1 % (0-3) Neutrophils # (Auto) 4.5 x10^3/uL (1.8-7.7) Lymphocytes # (Auto) 2.0 x10^3/uL (1.0-4.8) Monocytes # (Auto) 0.9 x10^3/uL (0.0-1.1) Eosinophils # (Auto) 0.5 x10^3/uL (0.0-0.7) Basophils # (Auto) 0.0 x10^3/uL (0.0-0.2) Sodium Level 138 mmol/L (136-145) Potassium Level 4.4 mmol/L (3.5-5.1) Chloride Level 104 mmol/L (98-107) Carbon Dioxide Level 30 mmol/L (21-32) Anion Gap 4 (6-14) Blood Urea Nitrogen 17 mg/dL (8-26) Creatinine 0.9 mg/dL (0.7-1.3) Estimated GFR (Cockcroft-Gault) 83.9 Glucose Level 178 mg/dL (70-99) Calcium Level 8.9 mg/dL (8.5-10.1) Medications Active Scripts Medications Dose Route/Sig Max Daily Dose Days Date Category Spironolactone 25 Mg Tablet 12.5 Mg PO DAILY 07/28/19 Reported Crestor (Rosuvastatin Calcium) 40 Mg Tablet 40 Mg PO HS 07/28/19 Reported Ranitidine Hcl 150 Mg Tablet 150 Mg PO DAILY 07/28/19 Reported Xopenex (Levalbuterol Hcl) 0.63 Mg/3 Ml Vial.neb 0.31 Mg IH QID 07/28/19 Reported Jardiance (Empagliflozin) 10 Mg Tablet 12.5 Mg PO DAILY 07/28/19 Reported B-12 (Cyanocobalamin (Vitamin B-12)) 1,000 Mcg Tablet.er 1,000 Mcg PO DAILY 07/28/19 Reported Spiriva (Tiotropium [place]) 18 Mcg Cap.w.dev 2 Inh IH DAILY 07/28/19 Reported Quetiapine Fumarate 400 Mg Tablet 400 Mg PO HS 07/28/19 Reported Prazosin Hcl 5 Mg Capsule 5 Mg PO HS 07/28/19 Reported Montelukast Sodium Tablet (Montelukast Sodium) 10 Mg Tablet 10 Mg PO DAILY 07/28/19 Reported Glipizide 10 Mg Tablet 20 Mg PO BID 07/28/19 Reported Gabapentin 600 Mg Tablet 300 Mg PO TID 07/28/19 Reported Furosemide 40 Mg Tablet 40 Mg PO DAILY PRN 07/28/19 Reported Fluoxetine Hcl 40 Mg Capsule 40 Mg PO DAILY 07/28/19 Reported Vitamin D2 (Ergocalciferol (Vitamin D2)) 50,000 Unit Capsule 50,000 Unit PO WEEKLY 07/28/19 Reported Budesonide 0.5 Mg/2 Ml Ampul.neb 180 Mcg IH BID 07/28/19 Reported Aspirin 81 Mg Tab.chew 81 Mg PO DAILY 07/28/19 Reported Amlactin (Ammonium Lactate) 57 Gm Lotion 57 Gm TP BID 07/28/19 Reported Alogliptin (Alogliptin Benzoate) 25 Mg Tablet 25 Mg PO DAILY 07/28/19 Reported Tylenol (Acetaminophen) 325 Mg Tablet 325 Mg PO Q4HRS 07/28/19 Reported Impression . 1. Resolving Acute on chronic respiratory failure. 2. Chronic obstructive pulmonary disease with acute exacerbation. 3. Left upper lobe pneumonia. 4. Hypotension and syncope. 5. Coronary artery disease. 6. Right upper lobe lung nodule. 7. Tobacco abuse. Plan . [facility] N[facility] I OFFER TO FOLLOW UP IN MY OFFICE HE DECLINED TREAT FOR PNEUMONIA AND AECOPD NEIL ESPINAL MD Jul 30, 2019 08:39
[2019-07-30] MEDS ORDERED: LINAGLIPTIN 5 MG TABLET PO SCH (09:00)
[2019-07-30 11:00] VITALS: BP 107/56
--- NOTE | 2019-07-30 14:21 | NUR ---
SS following for discharge planning. SS reviewed pt chart. Pt is from home and is currently requiring oxygen. Per request from physician SS [facility] to [facility]. SS met with pt to discuss discharge planning and [facility]. Pt declined [facility] and stated that he would discharge to home. Pt reported that he has oxygen at home through the [facility] and [facility]. Pt reported that he will discharge to home and continue services. Discharge order on the chart. Pt requested transport home. Pt will discharge to home today via [facility], , between 1600 and 1630. Pt's RN notified.
--- NOTE | 2019-07-30 14:29 | SNU/HH DC ---
DISCHARGE WITH HOME HEALTH DISCHARGE INFORMATION: Discharge Date: Jul 30, 2019 Final Diagnosis: Problems Medical Problems: (1) Acute and chronic respiratory failure Status: Acute (2) CAD (coronary artery disease) Status: Chronic (3) COPD with exacerbation Status: Acute (4) Hypotension Status: Acute (5) Left upper lobe pneumonia Status: Chronic (6) Right upper lobe pulmonary nodule Status: Chronic (7) Syncope Status: Acute (8) Tobacco abuse Status: Chronic Condition on Discharge: Stable CODE STATUS: Code Status: Full HOME HEALTH: Face to Face: I certify this patient is under my care and that I, or a nurse practitioner or physician's reading assistant working with me, had a face to face encounter that meets the physician face to face encounter requirements with this patient on 07/30/19 Medical Complications: Other RN For Eval/Treatment: Yes Physical Therapy For: Evalulation/Treatment Occupational Therapy For: Evaluation/Treatment Pt Meets Homebound Status: Poor coordination w/ amb. POST DISCHARGE ORDERS: Activity Instructions for Disc: Resume previous activity CERTIFICATION STATEMENT: Certification Statement: Certification Statement: Based on the above finding, I certify that this patient is confined to the home and needs intermittent snf care, physical therapy and/or speech therapy, or continues to need occupational therapy.~ This patient is under my care, and I have initiated the establishment of the plan of care.~ This patient will be followed by myself or a community physician who will periodically review the plan of care. Home Meds Reported Medications Spironolactone (SPIRONOLACTONE) 25 Mg Tablet, 12.5 MG PO DAILY for Diuretic, TAB 07/28/19 Rosuvastatin Calcium (CRESTOR) 40 Mg Tablet, 40 MG PO HS for FOR CHOLESTEROL, #30 TAB 0 Refills 07/28/19 Ranitidine Hcl (RANITIDINE HCL) 150 Mg Tablet, 150 MG PO DAILY for GERD, TAB 07/28/19 Levalbuterol Hcl (XOPENEX) 0.63 Mg/3 Ml Vial.neb, 0.31 MG IH QID for SOA, EACH 07/28/19 Empagliflozin (Jardiance) 10 Mg Tablet, 12.5 MG PO DAILY for DM, TAB 07/28/19 Cyanocobalamin (Vitamin B-12) (B-12) 1,000 Mcg Tablet.er, 1000 MCG PO DAILY for supplement, TAB.SR 07/28/19 Tiotropium [place] (SPIRIVA) 18 Mcg Cap.w.dev, 2 INH IH DAILY for SOA, #1 INH 0 Refills 07/28/19 Quetiapine Fumarate (QUETIAPINE FUMARATE) 400 Mg Tablet, 400 MG PO HS for mood, TAB 07/28/19 Prazosin Hcl (PRAZOSIN HCL) 5 Mg Capsule, 5 MG PO HS for Nightmares, CAP 07/28/19 Montelukast Sodium (MONTELUKAST SODIUM TABLET ) 10 Mg Tablet, 10 MG PO DAILY for FOR ASTHMA, TAB 0 Refills 07/28/19 Glipizide (GLIPIZIDE) 10 Mg Tablet, 20 MG PO BID for DM, TAB 07/28/19 Gabapentin (GABAPENTIN) 600 Mg Tablet, 300 MG PO TID for NEUROGENIC PAIN, TAB 07/28/19 Furosemide (FUROSEMIDE) 40 Mg Tablet, 40 MG PO DAILY PRN for SHORTNESS OF BREATH, TAB 07/28/19 Fluoxetine Hcl (FLUOXETINE HCL) 40 Mg Capsule, 40 MG PO DAILY for mood, CAP 07/28/19 Ergocalciferol (Vitamin D2) (VITAMIN D2) 50,000 Unit Capsule, 72841 UNIT PO WEEKLY for supplement, CAP 07/28/19 Budesonide (BUDESONIDE) 0.5 Mg/2 Ml Ampul.neb, 180 MCG IH BID for SOA, EACH 07/28/19 Aspirin (ASPIRIN) 81 Mg Tab.chew, 81 MG PO DAILY for Heart health, TAB.CHEW 07/28/19 Ammonium Lactate (AMLACTIN) 57 Gm Lotion, 57 GM TP BID for Dry Skin, MISC 07/28/19 Alogliptin Benzoate (Alogliptin) 25 Mg Tablet, 25 MG PO DAILY for DM, TAB 07/28/19 Acetaminophen (TYLENOL) 325 Mg Tablet, 325 MG PO Q4HRS for pain, TAB 07/28/19 Discontinued Reported Medications Prazosin Hcl (PRAZOSIN HCL) 2 Mg Capsule, 2 MG PO QHS for Nightmares, CAP 07/28/19 ZINA DONIS MD Jul 30, 2019 14:29
--- NOTE | 2019-07-30 16:07 | NUR ---
Discharge Note: [facility] Discharge instructions and discharge home medications reviewed with Patient and a copy given. All questions have been answered and understanding verbalized. The following instructions and handouts were given: syncope, orthostatic hypotension Patient discharged to home with home health with self via wheelchair
[2019-08-04] MEDS ORDERED: ERGOCALCIFEROL (VITAMIN D2) 50,000 UNIT CAPSULE. PO SCH (09:00)
== END 2019-07-30 16:15 | disposition home health service (06) | DRG 189 ==
LOC: 2 SOUTH 08:53
PROVIDERS: ADMIT Internal Medicine; ATTEND Internal Medicine
DX: J96.20 Acute and chronic respiratory failure, unspecified whether with hypoxia or hypercapnia (principal); J18.1 Lobar pneumonia, unspecified organism; I13.0 Hypertensive heart and chronic kidney disease with heart failure and stage 1 through stage 4 chronic kidney disease, or unspecified chronic kidney disease; E03.9 Hypothyroidism, unspecified; E11.22 Type 2 diabetes mellitus with diabetic chronic kidney disease; E86.0 Dehydration; E11.43 Type 2 diabetes mellitus with diabetic autonomic (poly)neuropathy; J43.9 Emphysema, unspecified; I95.9 Hypotension, unspecified; F17.210 Nicotine dependence, cigarettes, uncomplicated; F32.9 Major depressive disorder, single episode, unspecified; F20.9 Schizophrenia, unspecified; I25.10 Atherosclerotic heart disease of native coronary artery without angina pectoris; I25.5 Ischemic cardiomyopathy; F41.9 Anxiety disorder, unspecified; N18.9 Chronic kidney disease, unspecified; Z82.5 Family history of asthma and other chronic lower respiratory diseases; Z86.73 Personal history of transient ischemic attack (TIA), and cerebral infarction without residual deficits; Z87.828 Personal history of other (healed) physical injury and trauma; Z99.81 Dependence on supplemental oxygen; Z95.1 Presence of aortocoronary bypass graft
CPT/HCPCS: 36415; 80048; 82962; 84484; 85007; 85025; 94640; J7620; J7626; 97110; 97116; G0378